=== PATIENT | female | born 1945 | race Caucasian/White ===

== ENCOUNTER 2021-04-19 09:31 | Outpatient (CLI) | payer MEDICARE, SELFPAY ==
--- NOTE | 2021-04-19 09:40 | XR_ITS ---
WS: [id number] Left shoulder, 3 views, 04/19/2021 Clinical Data: LEFT SHOULDER PAIN Comparison: None. Findings: No fractures or dislocations are seen. The AC joint is normal. The adjacent left clavicle, left scapu la and ribs are normal. The soft tissues are unremarkable. XR/XR shoulder LT min 2V* [id number] Impression: Negative left shoulder.
== END 2021-04-19 09:32 | disposition home or self-care (01) ==
PROVIDERS: Visit Provider Nurse Practitioner Family
DX: M25.512 Pain in left shoulder (principal)
CPT/HCPCS: 73030

== ENCOUNTER 2022-07-29 11:25 | Outpatient (CLI) | payer MEDICARE, SELFPAY ==
--- NOTE | 2022-07-29 11:41 | XR_ITS ---
WS: [id number] Exam: XR lumbar spine 2-3V* [id number] Date/Time of Exam: 07/29/2022 11:41 AM Reason For Exam: LUMBAGO WITH SCIATICA No acute fracture or dislocation. Mild degenerative disc narrowing at L2-3, L3-4 and L4-5. Very minim al degenerative anterolisthesis of L4 on L5. Mild degenerative retrolisthesis of L3 on L4. Spondylosi s at all levels. 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 XR/XR lumbar spine 2-3V* [id number] IMPRESSION: 1. No acute fracture or malalignment. 2. Gfsx-me-xwgosoev degenerative changes as detailed above.
--- NOTE | 2022-07-29 11:41 | XR_ITS ---
WS: [id number] Exam: XR sacroiliac jts m 3V [id number] Date/Time of Exam: 07/29/2022 11:41 AM Reason For Exam: LUMBAGO WITH SCIATICA No fracture or dislocation. There is moderate degenerative change of both SI joints. The SI joints re main open. There are bony changes of the pelvis that may represent diffuse idiopathic skeletal hypero stosis. XR/XR sacroiliac jts m 3V [id number] IMPRESSION: 1. Moderate DJD of both SI joints. The SI joints remain open. No fracture or mei ne destruction. 2. Bony changes of the pelvis that may indicate diffuse idiopathic skeletal hyp erostosis.
== END 2022-07-29 11:26 | disposition home or self-care (01) ==
LOC: RAD 11:29
PROVIDERS: PCP Internal Medicine; Visit Provider Nurse Practitioner Family
DX: M46.1 Sacroiliitis, not elsewhere classified (principal); M47.816 Spondylosis without myelopathy or radiculopathy, lumbar region
CPT/HCPCS: 72100; 72202

== ENCOUNTER 2022-09-04 10:10 | Outpatient (RCR) | payer MEDICARE, SELFPAY | END 2022-09-05 23:59 | disposition home or self-care (01) | LOC: SPT 10:10 | PROVIDERS: PCP Internal Medicine; Visit Provider Nurse Practitioner Family | DX: M54.40 Lumbago with sciatica, unspecified side (principal) | CPT/HCPCS: 97161 ==

== ENCOUNTER 2023-07-02 13:29 | Outpatient (CLI) | payer MEDICARE, SELFPAY ==
--- NOTE | 2023-07-02 13:34 | MM_ITS ---
WS: [id number] BILATERAL 3D TOMOSYNTHESIS DIGITAL DIAGNOSTIC MAMMOGRAPHY WITH CAD CLINICAL INFORMATION: DUSTIN BR PAIN HISTORY: Bilateral breast pain with breast lumps. Pain and soreness. History of prior attempted stere otactic biopsy of calcifications in 2018 COMPARISON: 2018 TECHNIQUE: Bilateral CC, MLO, and ML views. FINDINGS: Scattered fibroglandular densities bilaterally. Punctate and lucent centered calcifications. Vascular calcifications. Punctate linear clustered pleomorphic calcifications lower inner RIGHT breast appear stable since 2018. Attempt was previously made to biopsy in 2018. Bilateral breast ultrasound to the areas of concern is pending. ULTRASOUND BREAST BILATERAL TECHNIQUE: Ultrasound bilateral breast focused area of concern. CLINICAL INFORMATION: DUSTIN BR PAIN FINDINGS: RIGHT BREAST: Ultrasound RIGHT breast at the 10:00, 12:00, 1:00, and 2:00 positions. Incidental tiny simple cyst at the 12 o'clock position. Otherwise normal underlying parenchymal tissue. No suspicious lesions to target for biopsy. LEFT BREAST: Ultrasound LEFT breast 10:00 12:00 and 3:00 positions. Normal underlying parenchymal tis ashwini. No suspicious cystic or solid lesions to target for biopsy. IMPRESSION: MM/[place] [id number] BI-RADS: 2-Benign FOLLOW UP: 1 Year Follow-up Recommend return to annual screening mammography.
== END 2023-07-02 13:30 | disposition home or self-care (01) ==
LOC: RAD 13:30
PROVIDERS: PCP Internal Medicine; Visit Provider Nurse Practitioner Family
DX: N64.4 Mastodynia (principal); R92.323 Mammographic fibroglandular density, bilateral breasts; R92.1 Mammographic calcification found on diagnostic imaging of breast; N60.01 Solitary cyst of right breast
CPT/HCPCS: 76642; 77062; G0279

== ENCOUNTER → 2023-12-05 12:32 | Outpatient (BNVA) | payer MEDICARE, SELFPAY | PROVIDERS: PCP Internal Medicine; Visit Provider Emergency Medicine | DX: R39.9 Unspecified symptoms and signs involving the genitourinary system (principal) | CPT/HCPCS: 81000; 87086 ==

== ENCOUNTER → 2024-08-03 10:00 | Outpatient (BNVA) | payer MEDICARE, SELFPAY | PROVIDERS: PCP Internal Medicine; Visit Provider Family Medicine | DX: R10.9 Unspecified abdominal pain (principal); N39.0 Urinary tract infection, site not specified; M47.26 Other spondylosis with radiculopathy, lumbar region | CPT/HCPCS: 81000 ==

== ENCOUNTER 2024-09-06 10:27 | Outpatient (RCR) | payer MEDICARE, SELFPAY | END 2024-10-05 23:59 | disposition home or self-care (01) | LOC: SPT 10:27 | PROVIDERS: Visit Provider Internal Medicine | DX: N39.46 Mixed incontinence (principal) | CPT/HCPCS: 97161 ==

== ENCOUNTER 2024-10-06 05:00 | Outpatient (RCR) | payer MEDICARE, SELFPAY | END 2024-11-05 23:59 | disposition home or self-care (01) | LOC: SPT 05:00 | PROVIDERS: Visit Provider Internal Medicine | DX: N39.46 Mixed incontinence (principal) | CPT/HCPCS: 97530 ==

== ENCOUNTER 2025-05-02 13:06 | Outpatient (CLI) | payer MEDICARE, SELFPAY ==
--- NOTE | 2025-05-02 13:15 | MM_ITS ---
WS: [id number] BILATERAL 3D TOMOSYNTHESIS DIGITAL SCREENING MAMMOGRAPHY WITH CAD CLINICAL INFORMATION: SCREENING HISTORY: Screening mammogram. No current complaints. COMPARISON: 2023 TECHNIQUE: Bilateral CC and MLO views. FINDINGS: Scattered fibroglandular densities bilaterally. No suspicious focal mass, asymmetry, calcifications, or architectural distortion. No evidence of malignancy. Vascular calcification. Punctate and lucent centered calcifications. MM/MM scr tomosynthesis [id number] IMPRESSION: DENSITY: There are scattered areas of fibroglandular density. BI-RADS: 2 - Benign. FOLLOW UP: 1 Year Follow-up Recommend return to annual screening mammography.
== END 2025-05-02 13:07 | disposition home or self-care (01) ==
LOC: RAD 13:10
PROVIDERS: PCP Internal Medicine; Visit Provider Internal Medicine
DX: Z12.31 Encounter for screening mammogram for malignant neoplasm of breast (principal); R92.323 Mammographic fibroglandular density, bilateral breasts; R92.1 Mammographic calcification found on diagnostic imaging of breast
CPT/HCPCS: 77063; 77067

== ENCOUNTER → 2025-06-05 11:08 | Outpatient (BNVA) | payer MEDICARE, SELFPAY | PROVIDERS: PCP Internal Medicine; Visit Provider Emergency Medicine | DX: N39.41 Urge incontinence (principal) | CPT/HCPCS: 81000 ==